=== PATIENT | male | born 1955 | race Two or more races ===

== ENCOUNTER 2024-08-16 07:50 | Day surgery (SDC) | payer MEDICARE, MEDICAID, SELFPAY ==
--- NOTE | 2024-08-15 07:00 | EKG_ITS ---
[facility] Test Date: 2024-08-15 Pat Name: DHIRAJ LAND Department: Room: - Gender: Male [employer]: YANY : 1955 Requested By: Ray Wilburn Order Number: [id number] Reading MD: Ray Wilburn Measurements Intervals Thompson Rate: 51 P: 47 [place]: 166 QRS: 35 QRSD: 120 T: 34 QT: 431 QTc: 398 Interpretive Statements SINUS BRADYCARDIA MODERATE INTRAVENTRICULAR CONDUCTION DELAY [110+ ms QRS DURATION] Compared to ECG 03/05/2020 09:23:17 Intraventricular conduction delay now present Sinus rhythm no longer present /store/S0/[id number]/ecg/[id number].pdf
[2024-08-15 07:04] VITALS: BMI 37.0
[2024-08-15 07:40] LABS: Collection Type, Urine Clean Catch
[2024-08-15 08:58] LABS: Basophils % (Auto) 1 % (0-2.5); Eosinophils % (Auto) 1 % (0-10); Hematocrit 41.2 % (41.0-53.0); Hemoglobin 14.1 g/dL (13.5-16.0); Immature Granulocytes % (Auto) 1 % (0-0); Immature Granulocytes Auto 0.02 Thou/mm3 (0.00-0.00); Lymphocytes # (Auto) 1.1 Thou/mm3 (1.0-4.8); Lymphocytes % (Auto) 26 % (10-50); Mean Corpuscular HGB Conc 34.2 g/dl (31.0-37.0); Mean Corpuscular Hemoglobin 31.1 pg (25.0-35.0); Mean Corpuscular Volume 91 fL (80-100); Monocytes # (Auto) 0.9 Thou/mm3 (0.0-0.8); Monocytes % (Auto) 21 % (0-12); Neutrophils # (Auto) 2.1 Thou/mm3 (1.8-7.7); Neutrophils % (Auto) 50 % (37-80); Nucleated Red Blood Cell % 0 /100 WBC (0); Platelet Count 183 Thou/mm3 (140-440); RDW Standard Deviation 45.3 fL (35.1-43.9); Red Blood Count 4.54 Miln/mm3 (4.50-5.90); White Blood Count 4.2 Thou/mm3 (3.8-10.6)
[2024-08-15 09:01] LABS: Bilirubin,Urine Negative (Negative); Blood,Urine 2+ (Negative); Clarity,Urine Clear (Clear/Hazy); Color,Urine Yellow (Lt Yel-Yel); Glucose, Urine 4+ (Negative); Ketones,Urine Negative (Negative); Leukocyte Esterase,Urine Negative (Negative); Nitrite,Urine Negative (Negative); PH,Urine 5.5 (5.0-7.0); Protein,Urine Trace (Neg - Trace); RBC,Urine 2 /hpf (0-3); Specific Gravity,Urine 1.028 (1.001-1.035); Squamous Epithelial Cell,Urine 1 /hpf (0-5); Urobilinogen,Urine Negative mg/dL (0.0-1.0); WBC,Urine 1 /hpf (0-5)
[2024-08-15 09:15] LABS: Alanine Aminotransferase 24 U/L (10-49); Albumin, Serum 4.4 gm/dL (3.4-4.8); Albumin/Globulin Ratio 1.5 (1.2-2.2); Alkaline Phosphatase 109 U/L (46-116); Anion Gap 8 (7-16); Aspartate Amino Transferase 24 U/L (0-34); BUN/Creatinine Ratio 19 Ratio (12-20); Bilirubin,Total 0.7 mg/dL (0.3-1.2); Blood Urea Nitrogen 23 mg/dL (9-23); Calcium 8.3 mg/dL (8.3-10.6); Calcium (Corrected) 8.3 mg/dL (8.5-10.1); Carbon Dioxide 26.5 mMol/L (20.0-31.0); Chloride 108 mMol/L (98-107); Creatinine (Component) 1.2 mg/dL (0.6-1.3); Estimated Creatinine Clearance 70.3 mL/min (>60); Globulin 2.9 gm/dL (2.3-3.5); Glucose 107 mg/dL (74-106); Osmolality,Calculated 286 (275-295); Potassium 4.2 mMol/L (3.4-5.1); Sodium 142 mMol/L (136-145); Total Protein 7.3 gm/dL (5.7-8.2); eGFR > 60 See Note
[2024-08-16] VITALS (9 sets, daily range): BP systolic 110–176; BP diastolic 52–79; PULSE 42–48; RESP 14–20; TEMP 36.1–36.5; O2SAT 95–99; BMI 36.8
--- NOTE | 2024-08-16 08:01 | ESHP_ITS ---
RE: DHIRAJ LAND : 1955 DATE OF ADMISSION: 08/19/2024 HISTORY OF PRESENT ILLNESS: The patient is an elderly gentleman. He is a Lithuanian-speaking male, 68-year-old. He has scrotal swelling. He has nocturia 2-3 times. The urine is somewhat slow. No blood or no burning in the urine. PAST SURGICAL HISTORY: Surgery on his feet. SOCIAL HISTORY: He has five kids. PAST MEDICAL HISTORY: He has a history of hypertension, history of diabetes mellitus. MEDICATIONS: He takes, 1. Nifedipine. 2. Metoprolol. 3. Jardiance. 4. Diovan. 5. Aspirin. ALLERGIES: NONE KNOWN. PHYSICAL EXAMINATION: HEENT: Normal. Neck: Supple. Lungs: Clear. Cardiovascular: Heart sounds are normal. Abdomen: Soft without any organomegaly. No guarding. No rigidity. Extremities: Normal. Genitourinary: Phallus is normal. Testes are down in scrotum. There is a left-sided scrotal hydrocele 4 inches in size. Rectal: Rectal examination reveals mild to moderately enlarged prostate. IMPRESSION: Left-sided scrotal hydrocele. PLAN: Left hydrocelectomy. Planned procedure, risks, and complications have been discussed with the patient. The patient has understood them and agreed to proceed. DT: 15:04:40 TT: 15:57:00 Ref: [id number] - TID: [id number]
--- NOTE | 2024-08-16 11:12 | SUR.PHASEI ---
pt received from OR in recovery bay 4. pt obtunded, breathing unlabored on oxymask 10l, oral airway in place. v/s stable. pt dressing to scrotal area cdi. report received from Mady HOFMFANN and Dr. Augustine.
--- NOTE | 2024-08-16 11:46 | SUR.PHASEII ---
pt able to tolerate oral fluids without difficulty swallowing or nausea/vomiting.
--- NOTE | 2024-08-16 12:40 | SUR.PHASEII ---
pt awake and alert, breathing unlabored on room air. v/s stable. pt dressing to scrotal area cdi. pt able to ambulate to wheelchair with steady gait. d/c instructions given with and daughter in room using terra cotta roofer helper Galina garcia, all questions answered. pt d/c via wheelchair with all belongings.
--- NOTE | 2024-08-16 16:41 | ESOP_ITS ---
RE: DHIRAJ LAND : 1955 DATE OF OPERATION: 08/16/2024 PREOPERATIVE DIAGNOSIS: Left scrotal hydrocele. POSTOPERATIVE DIAGNOSIS: Left scrotal hydrocele with prominent appendix of the left testis. PROCEDURE PERFORMED: Left hydrocelectomy with excision and fulguration of the appendix of the left testis. ANESTHESIA: General. INDICATION: The patient is a 68-year-old gentleman with large left scrotal hydrocele. He has 4 inches sized left scrotal hydrocele. He is now scheduled to have left hydrocelectomy. Planned procedure, risks, and complications have been discussed with the patient. The patient understood them and agreed to proceed. DESCRIPTION OF PROCEDURE: After the patient was brought to the operating table, under adequate general anesthesia, he was placed in the supine position and parts were prepped and draped in the usual fashion. Left scrotal incision was then made vertical in fashion about 5 cm long. Skin and subcutaneous tissues were incised. Hemostasis was obtained. Left hydrocele sac was dissected from surrounding structures and was opened. It contained a clear yellow hydrocele fluid about 150 mL. Partial excision of the hydrocele sac was done and the eversion of the sac was done behind the spermatic cord structures with interrupted sutures of 3-0 chromic catgut. There was prominent appendix of the left testis, which was excised and fulgurated. Complete hemostasis was obtained. Left testis was put back into the left hemiscrotum and the scrotal sac was closed in layers using 3-0 chromic catgut sutures. Local anesthetic was injected at the site of skin. Sterile dressing was then applied. The patient was then transferred to the recovery room in a satisfactory condition, having tolerated the entire procedure well. Sponge count and needle count at the end of the procedure was found to be correct. Estimated blood loss was approximately 5 mL. DT: 11:28:04 TT: 16:39:00 Ref: [id number] - TID: [id number]
== END 2024-08-16 12:40 | disposition home or self-care (01) ==
PROVIDERS: Anesthesiology; PCP Physician Assistant; Referring Provider Surgery; Visit Provider Surgery
PROC: (CPT 55040; principal; 2024-08-16 09:45)
DX: N43.3 Hydrocele, unspecified (principal); I10 Essential (primary) hypertension; E11.9 Type 2 diabetes mellitus without complications; Z01.810 Encounter for preprocedural cardiovascular examination; N44.03 Torsion of appendix testis
CPT/HCPCS: 55040; 36415; 80053; 81001; 85025; 93005; A4217; A4649; J0690; J1100; J1885; J2250; J2405; J2704; J3010; J3490; L8330; A9270; J0665

== ENCOUNTER → 2024-12-13 | Outpatient (CLI) | payer OTHER, SELFPAY ==
[2024-12-13 10:31] LABS: Basophils # (Auto) 0.0 Thou/mm3 (0.0-0.2); Basophils % (Auto) 1 % (0-2.5); Eosinophils # (Auto) 0.1 Thou/mm3 (0.0-0.5); Eosinophils % (Auto) 3 % (0-10); Hematocrit 32.4 % (41.0-53.0); Hemoglobin 10.8 g/dL (13.5-16.0); Immature Granulocytes Auto 0.02 Thou/mm3 (0.00-0.00); Lymphocytes # (Auto) 0.5 Thou/mm3 (1.0-4.8); Lymphocytes % (Auto) 12 % (10-50); Mean Corpuscular HGB Conc 33.3 g/dl (31.0-37.0); Mean Corpuscular Hemoglobin 31.0 pg (25.0-35.0); Mean Corpuscular Volume 93 fL (80-100); Monocytes # (Auto) 1.4 Thou/mm3 (0.0-0.8); Monocytes % (Auto) 33 % (0-12); Neutrophils # (Auto) 2.2 Thou/mm3 (1.8-7.7); Neutrophils % (Auto) 50 % (37-80); Nucleated Red Blood Cell # 0.00 Thou/mm3 (0.00-0.00); Nucleated Red Blood Cell % 0 /100 WBC (0); Platelet Count 233 Thou/mm3 (140-440); RDW Standard Deviation 56.4 fL (35.1-43.9); Red Blood Count 3.48 Miln/mm3 (4.50-5.90); White Blood Count 4.3 Thou/mm3 (3.8-10.6)
[2024-12-13 10:50] LABS: Alanine Aminotransferase 16 U/L (10-49); Albumin, Serum 4.6 gm/dL (3.4-4.8); Albumin/Globulin Ratio 1.5 (1.2-2.2); Alkaline Phosphatase 68 U/L (46-116); Anion Gap 13 (7-16); Aspartate Amino Transferase 22 U/L (0-34); BUN/Creatinine Ratio 15 Ratio (12-20); Bilirubin,Total 0.7 mg/dL (0.3-1.2); Blood Urea Nitrogen 20 mg/dL (9-23); Calcium 10.4 mg/dL (8.3-10.6); Calcium (Corrected) 10.4 mg/dL (8.5-10.1); Carbon Dioxide 22.4 mMol/L (20.0-31.0); Cardiac Risk Estimate 6.8 RATIO (4.0-6.7); Chloride 105 mMol/L (98-107); Cholesterol 170 mg/dL (132-200); Creatinine (Component) 1.3 mg/dL (0.6-1.3); Globulin 3.0 gm/dL (2.3-3.5); Glucose 95 mg/dL (74-106); HDL Cholesterol 25 mg/dL (40-60); LDL Cholesterol,Calculated 120 mg/dL (0-130); Osmolality,Calculated 282 (275-295); Potassium 4.7 mMol/L (3.4-5.1); Sodium 140 mMol/L (136-145); Thyroid Stimulating Hormone 1.88 uIU/mL (0.55-4.78); Total Protein 7.6 gm/dL (5.7-8.2); Triglycerides 125 mg/dL (30-150); Uric Acid 4.3 mg/dL (3.7-9.2); eGFR 60 See Note
[2024-12-13 10:53] LABS: Vitamin D 25 Hydroxy Total 49.1 ng/mL (7.3-40.2)
[2024-12-13 11:04] LABS: Collection Type, Urine Clean Catch
[2024-12-13 12:00] LABS: Bilirubin,Urine Negative (Negative); Blood,Urine Trace (Negative); Clarity,Urine Clear (Clear/Hazy); Color,Urine Yellow (Lt Yel-Yel); Glucose, Urine Negative (Negative); Hyaline Casts,Urine < 1 /hpf (0-1); Ketones,Urine Negative (Negative); Leukocyte Esterase,Urine Positive (Negative); Nitrite,Urine Negative (Negative); PH,Urine 5.5 (5.0-7.0); Protein,Urine Trace (Neg - Trace); RBC,Urine 3 /hpf (0-3); Specific Gravity,Urine 1.016 (1.001-1.035); Squamous Epithelial Cell,Urine 1 /hpf (0-5); Urobilinogen,Urine Negative mg/dL (0.0-1.0); WBC,Urine 17 /hpf (0-5)
== END | disposition home or self-care (01) ==
PROVIDERS: PCP Family Medicine; Referring Provider Internal Medicine; Visit Provider Internal Medicine
DX: Z00.00 Encounter for general adult medical examination without abnormal findings (principal); E79.0 Hyperuricemia without signs of inflammatory arthritis and tophaceous disease; E55.9 Vitamin D deficiency, unspecified
CPT/HCPCS: 36415; 80053; 80061; 81001; 82306; 84443; 84550; 85025

== ENCOUNTER → 2025-03-04 | Outpatient (CLI) | payer OTHER, SELFPAY ==
[2025-03-04 11:14] LABS: Basophils # (Auto) 0.0 Thou/mm3 (0.0-0.2); Basophils % (Auto) 0 % (0-2.5); Eosinophils # (Auto) 0.0 Thou/mm3 (0.0-0.5); Eosinophils % (Auto) 0 % (0-10); Hematocrit 33.3 % (41.0-53.0); Hemoglobin 10.5 g/dL (13.5-16.0); Immature Granulocytes Auto 0.20 Thou/mm3 (0.00-0.00); Lymphocytes # (Auto) 1.2 Thou/mm3 (1.0-4.8); Lymphocytes % (Auto) 10 % (10-50); Mean Corpuscular HGB Conc 31.5 g/dl (31.0-37.0); Mean Corpuscular Hemoglobin 30.7 pg (25.0-35.0); Mean Corpuscular Volume 97 fL (80-100); Monocytes # (Auto) 2.9 Thou/mm3 (0.0-0.8); Monocytes % (Auto) 24 % (0-12); Neutrophils # (Auto) 8.0 Thou/mm3 (1.8-7.7); Neutrophils % (Auto) 65 % (37-80); Nucleated Red Blood Cell # 0.00 Thou/mm3 (0.00-0.00); Nucleated Red Blood Cell % 0 /100 WBC (0); Platelet Count 158 Thou/mm3 (140-440); RDW Standard Deviation 68.3 fL (35.1-43.9); Red Blood Count 3.42 Miln/mm3 (4.50-5.90); White Blood Count 12.3 Thou/mm3 (3.8-10.6)
[2025-03-04 11:24] LABS: Glucose Estimated Average 97 mg/dL (80-131); Hemoglobin A1C 5.0 % Hgb (4.8-6.0)
[2025-03-04 11:38] LABS: Creatinine MALB Rnd Ur 243 mg/dL (30-125); Microalbumin Creat Ratio 43 mg/gCrea (<30); Microalbumin, Random Urine 105 mg/L (0-300)
[2025-03-04 12:04] LABS: Alanine Aminotransferase 18 U/L (10-49); Albumin, Serum 4.8 gm/dL (3.4-4.8); Alkaline Phosphatase 90 U/L (46-116); Anion Gap 11 (7-16); Aspartate Amino Transferase 26 U/L (0-34); BUN/Creatinine Ratio 16 Ratio (12-20); Bilirubin,Total 1.4 mg/dL (0.3-1.2); Blood Urea Nitrogen 16 mg/dL (9-23); Calcium 9.4 mg/dL (8.3-10.6); Calcium (Corrected) 9.4 mg/dL (8.5-10.1); Carbon Dioxide 28.5 mMol/L (20.0-31.0); Chloride 105 mMol/L (98-107); Creatinine (Component) 1.0 mg/dL (0.6-1.3); Glucose 90 mg/dL (74-106); Osmolality,Calculated 288 (275-295); Potassium 4.0 mMol/L (3.4-5.1); Sodium 144 mMol/L (136-145); eGFR > 60 See Note
[2025-03-04 13:06] LABS: Albumin/Globulin Ratio 1.8 (1.2-2.2); Globulin 2.6 gm/dL (2.3-3.5); Total Protein 7.4 gm/dL (5.7-8.2)
[2025-03-04 13:27] LABS: Cardiac Risk Estimate 5.4 RATIO (4.0-6.7); Cholesterol 182 mg/dL (132-200); HDL Cholesterol 34 mg/dL (40-60); LDL Cholesterol,Calculated 125 mg/dL (0-130); Triglycerides 113 mg/dL (30-150)
[2025-03-04 18:17] LABS: Path Review Blood Smear Sent to Pathologist
== END | disposition home or self-care (01) ==
LOC: COPL 09:35
PROVIDERS: PCP Family Medicine; Referring Provider Family Medicine; Visit Provider Family Medicine
DX: Z00.00 Encounter for general adult medical examination without abnormal findings (principal); E78.2 Mixed hyperlipidemia; E11.69 Type 2 diabetes mellitus with other specified complication; I10 Essential (primary) hypertension; C95.90 Leukemia, unspecified not having achieved remission
CPT/HCPCS: 36415; 80053; 80061; 82043; 82570; 83036; 85025